=== PATIENT | male | born 1955 | race African-American/Black ===

== ENCOUNTER 2019-03-04 03:45 | Outpatient (CLI) | END 2019-03-04 04:05 | disposition short-term general hospital (02) | LOC: AMBL 03:45 | PROVIDERS: ATTEND Family Medicine | DX: R56.9 Unspecified convulsions (principal); R41.0 Disorientation, unspecified ==

== ENCOUNTER 2019-03-24 11:51 | Outpatient (CLI) ==
--- NOTE | 2019-03-24 13:17 | US ---
EXAM: ULTRASOUND LOWER EXTREMITY VENOUS DOPPLER EXAM HISTORY: Edema. FINDINGS: Right lower extremity venous Doppler exam. Real time bah-scale, Doppler spectral analysi s and color-flow Doppler imaging performed. The veins targeted for evaluation include the common fem oral, greater saphenous, profundus, femoral, popliteal, peroneal, anterior tibial and posterior tibia l. The evaluated veins demonstrated normal spontaneous flow and compression without evidence of th rombosis. IMPRESSION: No venous thrombosis identified within the areas evaluated.
== END 2019-03-24 11:52 | disposition home or self-care (01) ==
LOC: RAD 11:51
PROVIDERS: ATTEND Family Medicine
DX: R60.0 Localized edema (principal); M19.90 Unspecified osteoarthritis, unspecified site; Z79.01 Long term (current) use of anticoagulants